=== PATIENT | male | born 1990 | race Caucasian/White ===

== ENCOUNTER 2023-11-17 17:43 | Emergency (ER) | payer MEDICAID ==
[~2023-11-17] VITALS: Ht 172.7 cm; Wt 90.7 kg
[2023-11-17 17:53] VITALS: BP 144/82; PULSE 73; RESP 16; TEMP 98.2; O2SAT 97
[2023-11-17] MEDS ORDERED: ACET-8905 PO (18:11)
[2023-11-17] MEDS: HYDROcodone/APAP 5/325 MG 1 TAB TAB PO ONE (18:14)
[2023-11-17 18:19] VITALS: BP 144/82; PULSE 73; RESP 16; TEMP 98.2; O2SAT 97
== END 2023-11-17 18:20 | disposition home or self-care (01) ==
LOC: MED 17:43
DX: K08.89 Other specified disorders of teeth and supporting structures (principal); I10 Essential (primary) hypertension
CPT/HCPCS: 99283